=== PATIENT | male | born 1975 | race Caucasian/White ===

== ENCOUNTER 2016-06-30 20:57 | Emergency (ER) | payer BC ==
[~2016-06-30] VITALS: Ht 182.9 cm; Wt 117.3 kg
[2016-06-30 21:17] VITALS: TEMP 100.3
[2016-06-30 21:57] LABS: BASO % 0.4 % (0.0-2.0); EOS % 0.3 % (0-4.0); GRAN # 8.7 (1.4-6.5); GRAN % 85.8 % (42.2-75.2); HEMOGLOBIN 14.2 g/dl (13.5-18.0); LYMPH # 0.6 (1.2-3.4); LYMPH % 6.1 % (20.0-51.0); MEAN CELL VOLUME 81 fl (80.0-100.0); MEAN CORPUSCULAR HEMOGLOBIN 28 pg (27.0-31.0); MEAN CORPUSCULAR HGB CONC 35 g/dl (33.0-37.0); MEAN PLATELET VOLUME 9.7 fl (7.4-10.4); MONO # 0.7 (0.1-0.6); MONO % 6.9 % (1.7-9.3); PLATELET COUNT 226 K/mm3 (130-400); RED BLOOD COUNT 5.05 M/mm3 (4.20-5.60); REDCELL DISTRIBUTION WIDTH-CV 12.9 % (11.5-14.5); WHITE BLOOD COUNT 10.1 K/mm3 (4.8-10.8)
[2016-06-30 22:05] LABS: PH 6 (5-8); SQUAMOUS EPITHELIAL None Seen /hpf; URINE APPEARANCE Clear; URINE BACTERIA None Seen /hpf; URINE BILIRUBIN Negative (NEGATIVE); URINE BLOOD 1+ (NEGATIVE); URINE COLOR Yellow; URINE GLUCOSE Negative (NEGATIVE); URINE KETONE Negative (NEGATIVE); URINE UROBILINOGEN Negative (NEGATIVE); URINE WBC 0-2 /hpf
[2016-06-30 22:10] LABS: ADJUSTED CALCIUM 8.9 mg/dL (8.4-10.2); ALANINE AMINOTRANSFERASE 100 U/L (21-72); ALBUMIN 4.3 gm/dL (3.5-5.0); ALKALINE PHOSPHATASE 48 U/L (50-136); ANION GAP 14 mmol/L (7-16); BILIRUBIN,TOTAL 1.4 mg/dL (0.0-1.0); BLOOD UREA NITROGEN 11 mg/dL (9-20); C-REACTIVE PROTEIN 3.3 mg/dL (0.0-0.9); CALCIUM 9.1 mg/dL (8.4-10.2); CARBON DIOXIDE 20 mmol/L (22-30); CHLORIDE 103 mmol/L (98-107); CREATININE, serum 0.92 mg/dL (0.66-1.25); GLUCOSE 125 mg/dL (74-106); POTASSIUM 3.2 mmol/L (3.4-5.0); SODIUM 137 mmol/L (137-145); TOTAL PROTEIN 7.6 gm/dL (6.4-8.2)
[2016-06-30 22:14] LABS: INFLUENZA B NEGATIVE
[2016-06-30 22:21] LABS: TROPONIN-I < 0.012 ng/mL (0.000-0.034)
[2016-06-30 23:10] VITALS: BP 155/88; PULSE 82
== END 2016-06-30 23:15 | disposition home or self-care (01) ==
LOC: COL.ER 20:57
PROVIDERS: Emergency Medicine
DX: R50.9 Fever, unspecified (principal); R07.9 Chest pain, unspecified
CPT/HCPCS: J0696; J7030

== ENCOUNTER 2022-01-29 17:53 | Observation (INO) | payer BC ==
[~2022-01-29] VITALS: Ht 182.9 cm; Wt 120.0 kg
[2022-01-29 19:49] LABS: BASO # 0.1 K/mm3 (0.0-0.2); BASO % 0.9 % (0.0-2.0); EOS # 0.2 K/mm3 (0.0-0.7); EOS % 2.2 % (0.0-4.0); GRAN # 4.8 K/mm3 (1.4-6.5); GRAN % 65.4 % (42.2-75.2); HEMATOCRIT 37.9 % (42.0-52.0); LYMPH # 1.7 K/mm3 (1.2-3.4); LYMPH % 22.3 % (20.0-51.0); MEAN CELL VOLUME 78 fl (80.0-100.0); MEAN CORPUSCULAR HEMOGLOBIN 27 pg (27-31); MEAN CORPUSCULAR HGB CONC 34 g/dl (33.0-37.0); MEAN PLATELET VOLUME 8.8 fl (7.4-10.4); MONO # 0.7 K/mm3 (0.1-0.6); MONO % 8.9 % (1.7-9.3); PLATELET COUNT 270 K/mm3 (130-400); RED BLOOD COUNT 4.87 M/mm3 (4.20-5.60); REDCELL DISTRIBUTION WIDTH-CV 13.8 % (11.5-14.5)
[2022-01-29 20:03] LABS: INR 1.1 (0.8-3.0); PROTHROMBIN TIME 12.7 SECONDS (9.7-12.8)
[2022-01-29 20:10] LABS: ALBUMIN 4.1 gm/dL (3.5-5.0); BILIRUBIN,TOTAL 0.5 mg/dL (0.2-1.2); CREATININE, serum 0.86 mg/dL (0.72-1.25); POTASSIUM 3.7 mmol/L (3.5-4.5); TOTAL PROTEIN 7.3 gm/dL (6.2-8.1)
[2022-01-29 23:31] VITALS: BP 146/83; PULSE 65; TEMP 98
[2022-01-30 04:19] VITALS: BP 142/81; PULSE 58; TEMP 97.7
[2022-01-30 07:00] VITALS: BP 131/83; PULSE 66; TEMP 98.1
[2022-01-30 07:08] LABS: CALCIUM 8.9 mg/dL (8.4-10.2); CREATININE, serum 0.92 mg/dL (0.72-1.25); POTASSIUM 3.8 mmol/L (3.5-4.5)
[2022-01-30 07:10] LABS: BASO # 0.1 K/mm3 (0.0-0.2); BASO % 1.2 % (0.0-2.0); EOS # 0.2 K/mm3 (0.0-0.7); EOS % 3.4 % (0.0-4.0); GRAN # 3.7 K/mm3 (1.4-6.5); GRAN % 56.1 % (42.2-75.2); HEMATOCRIT 38.4 % (42.0-52.0); HEMOGLOBIN 12.9 g/dl (13.5-18.0); LYMPH % 31.2 % (20.0-51.0); MEAN CELL VOLUME 79 fl (80.0-100.0); MEAN CORPUSCULAR HEMOGLOBIN 26 pg (27-31); MEAN CORPUSCULAR HGB CONC 34 g/dl (33.0-37.0); MEAN PLATELET VOLUME 9.5 fl (7.4-10.4); MONO # 0.5 K/mm3 (0.1-0.6); MONO % 7.8 % (1.7-9.3); PLATELET COUNT 259 K/mm3 (130-400); RED BLOOD COUNT 4.88 M/mm3 (4.20-5.60); REDCELL DISTRIBUTION WIDTH-CV 13.7 % (11.5-14.5)
--- NOTE | 2022-01-30 07:28 | NUR ---
Pt assessment complete. Pt is sitting up in the recliner, he is A/O x4. His breathing is even and unlabored on RA. Pt denies SOB. No pain at this time. Reports weakness has improved and the tremor has subsided. POC discussed with patient who verbalizes understanding, no needs at this time. Call light within reach.
--- NOTE | 2022-01-30 07:50 | NUR ---
Pt reported feeling similar symptoms that brought him into the hospital. Denies photophobia, states it feels as if he is a little lightheaded. A feeling prior to passing out. No N/T, or weakness to one side or another. Neuro check WNL. Denies headache. Vitals attained 147/96, HR 61 O2 sat 99%. Tele reports no changes.
[2022-01-30 12:32] VITALS: BP 149/91; PULSE 77; TEMP 97.4
--- NOTE | 2022-01-30 12:53 | NUR ---
[facility] met with patient to discuss discharge planning. Patient lives in [place] with his , Cari and seven of their eight children[address] Patient sees Dr. Bañuelos for primary care and obtains medications from [facility]. Patient does not use any DME and is independent with [facility]. Patient does not have Advance Directives. Patient plans to return home at time of discharge. Discharge Plan: Home
[2022-01-30] MEDS ORDERED: PRINIVIL20 MG PO (15:20)
[2022-01-30 15:32] VITALS: BP 140/79; PULSE 77; TEMP 98.3
[2022-01-30] MEDS ORDERED: LIPITOR 40MG TA40 MG PO (16:48)
--- NOTE | 2022-01-30 17:05 | NUR ---
Discharge paperwork and instructions reviewed with patient, all questions answered at this time. IV to [facility] metzger. Pt walked out of facility with staff member at this time.
== END 2022-01-30 17:06 | disposition home or self-care (01) ==
LOC: COL.ER 17:53 → MEDICAL 22:16
PROVIDERS: Personal Emergency Response Attendant; Student in an Organized Health Care Education/Training Program; ADMIT Student in an Organized Health Care Education/Training Program
DX: I16.0 Hypertensive urgency (principal); Z86.16 Personal history of COVID-19; G43.909 Migraine, unspecified, not intractable, without status migrainosus
CPT/HCPCS: A9575; G0378; J1650; Q9967

== ENCOUNTER 2023-12-19 21:12 | Emergency (ER) | payer BC ==
[~2023-12-19] VITALS: Ht 182.9 cm; Wt 100.0 kg
[~2023-12-19 21:12] MED LIST: LIPITOR 40MG TA40 MG PO; PRINIVIL20 MG PO
[2023-12-19 21:15] VITALS: TEMP 98.2
[2023-12-19 21:50] VITALS: BP 143/74; PULSE 70
== END 2023-12-19 21:50 | disposition home or self-care (01) ==
LOC: COL.ER 21:12
DX: S01.01XD Laceration without foreign body of scalp, subsequent encounter (principal); X58.XXXD Exposure to other specified factors, subsequent encounter

== ENCOUNTER 2023-12-26 05:59 | Day surgery (SDC) | payer BC ==
[~2023-12-26] VITALS: Ht 182.9 cm; Wt 121.2 kg
[~2023-12-26 05:59] MED LIST changes: +LR 1,000 ML IV SCH; +Ondansetron 4 MG/2 ML VIAL IV PRN
[2023-12-26 07:03] VITALS: BP 128/84; PULSE 64; TEMP 97.6
[2023-12-26] MEDS ORDERED: LAMISIL250 M1 (07:12)
[2023-12-26] MEDS ORDERED: Lidocaine PF 2% (20 MG/ML) 5 ML VIAL ONE (07:26)
[2023-12-26 08:10] VITALS: BP 119/77; PULSE 60; TEMP 97.5
[2023-12-26 08:25] VITALS: BP 114/52; PULSE 58
--- NOTE | 2023-12-26 08:45 | NUR ---
0810 RETURNS TO ROOM 1 PER CART. AWAKE, ALERT. RESP UNLABORED. AMBULATES TO RECLINER WITH STANDBY ASSIST. DENIES NAUSEA OR ABD PAIN. VITAL SIGNS OBTAINED. CALL LIGHT AT SIDE 0825 TOLERATES PO JUICE AND MUFFIN WITHOUT NAUSEA. 0830 DISCHARGE INSTRUCTIONS REVIEWED. PATIENT VERBALIZES UNDERSTANDING. COPY PROVIDED IN DISCHARGE FOLDER. HERE 0838 DR SANCHEZ HERE TO VISIT WITH PATIENT [id number] DRESSES SELF
== END 2023-12-26 08:45 | disposition home or self-care (01) ==
LOC: SDCO 05:59
DX: Z12.11 Encounter for screening for malignant neoplasm of colon (principal); E66.01 Morbid (severe) obesity due to excess calories
CPT/HCPCS: J2704